=== PATIENT | male | born 1975 | race African-American/Black ===

== ENCOUNTER 2017-08-13 05:24 | Emergency (ER) | payer BC ==
[~2017-08-13] VITALS: Ht 203.2 cm; Wt 111.1 kg
--- NOTE | 2017-08-13 06:01 | Emergency Room Report ---
History of Present Illness Time Seen by 05Keegan Presenting Problem in Triage Pt arrived:Walked Presenting Problem:PT STATES THAT HE HAS TO "SPIDER BITES" ONE ON HIS RIGHT WRIST AND THE OTHER ON THE BACK OF HIS HEAD NEAR HIS NECK THAT WERE BOTH NOTICED 08/12/17999. THE ONE ON HIS WRIST IS SWOLLEN AND OOZING PUS. Onset of symptoms date/time:08/12/1711/16/1000 or onset unknown for: Treatment Prior to Arrival: PT PUT HYDOCORTISONE AND CLEANED WITH ALCOHOL. 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 N Clinical Suspician of Infection? N Mental Status: 1 - Regular (Normal Baseline) Sepsis Risk:Low Sepsis Risk Have you (or family members/close friends) recently traveled outside the [place]? Y If Yes, where/when: [place] IN THE PAST YEAR Have you had exposure to infectious disease within the past month? N TB? Other? Specify: Source patient, RN notes reviewed, old records Exam Limitations no limitations Comment infected area on rt wrist dorsum over the last few days with no known bite or wd and no iv drug use - pt is not diabetic and has no fever or chills Cardiac Chest Pain Chest pain indicative of cardiac No Timing/Duration this evening Severity moderate ALLERGIES Coded Allergies: No Known Allergies (08/13/17) History Medical History General CAD? No Angina: No [place]: No Hypertension? No Hyperlipidemia? No CHF? No DVT? No PE? No COPD? No Asthma? No Anemia? No GERD? No Gastric ulcers? No GI Bleed? No Hernia? No Thyroid Problems? No Hypothyroidism? No CVA? No Seizures? No Renal Insuffiency? No End Stage Renal Disease? No UTI? No Stones? No BPH? No GB Disease: No Nephritic Syndrome? No Asplenia? No Hepatitis? No Sickle Cell Disease? No Arthritis? No Migraines? No Cataracts? No Glaucoma? No MRSA? No HIV? No TB? No Anxiety? No Depression? No Cancer? No More? No Immunization Hx DT/Tetanus Unknown Surgical Hx Previous Surgery?N Social History Smoking Hx Smoker: Light Tobacco Smoker Tobacco: Yes Type Cigarettes Packs/day < 1 Pack Alcohol Alcohol: Yes Drugs none Review of Systems All Other Systems Reviewed and Negative Constitutional denies fever Eyes denies drainage ENT denies: ear discharge, epistaxis, throat pain. Respiratory denies cough, denies shortness of breath, denies wheezing Cardiovascular denies chest pain, denies palpitations, denies syncope Gastrointestinal denies abdominal pain, denies diarrhea, denies vomiting Genitourinary denies: dysuria, frequency, hesitancy, hematuria. Musculoskeletal denies back pain, denies joint pain, denies joint swelling, denies neck pain Skin see HPI, denies rash, other Psychiatric/Neurological denies headache, denies seizure Physical Exam Vital Signs Vital Signs Date Time Temp Pulse Resp B/P Pulse O2 O2 Flow FiO2 Ox Delivery Rate 08/13 0532 97.8 76 18 143/100 98 - WBC >12,000 or <4,000 or 10% bands? 2 or more SIRS Criteria Met? B/P:143/100 MAP:114 Creatinine >2.0? UA output<0.5ml/kg/hr for 2 hrs? Platelet count >100,000? Lactate >2.0mmol/1? INR >1.2 or PTT > than 60 sec? Evidence of Organ Dysfunction? Provider documented clinical suspician of infection? N Sepsis Criteria Count: 0 Sepsis Risk: Low Sepsis Risk General Appearance no apparent distress Eye Exam - bilateral eye PERRL, bilateral eye EOMI Ear, Nose, Throat normal ENT inspection Neck supple Respiratory Status No: respiratory distress. 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 No Results/Orders Current Medication Orders Sig/Aníbal Start time Last Medication Dose Route Stop Time Status Admin Miscellaneous 1 EACH CONSULT PHARMACY 08/13 615 AC Information * 08/13 180 Sodium Chloride 10 ML PRN PRN 08/13 615 AC IV 08/14 06 Vancomycin HCl 2,000 MG ONCE ONE 08/13 615 [facility] Sodium Chloride 250 ML IV 08/13 814 Orders Procedure Date/time Status CULTURE, WOUND 08/13 619 Active IV SALINE LOCK 08/13 602 Active CULTURE, BLOOD 08/13 602 Active SED RATE 08/13 602 Active COMPLETE METABOLIC PANEL 08/13 602 Active CBC WITH AUTO DIFF 08/13 602 Active Departure Departure Time of Disposition 15 Disposition DC Home or Self Care(routine) Clinical Impression Primary Impression: Cellulitis Qualifiers: Site of cellulitis: extremity Site of cellulitis of extremity: upper extremity Laterality: right Qualified Code: L03.113 - Cellulitis of right upper limb Condition STABLE Patient Instructions DI for Cellulitis -- Adult Additional Instructions keep clean and dressed and see pcp for follow up and culture results Discharge Counseling Counseled pt/family regarding diagnosis, test results, medications/RX, follow up needs Prescriptions Current Visit Scripts CEPHALEXIN (Keflex 500MG Capsule) 500 MG PO Q8H #30 CAP SULFAMETHOXAZOLE/TRIMETHOPRIM (Sulfamethoxazole-Tmp Ds Tablet) 1 TAB PO BID #20 TAB MUPIROCIN 2% (Bactroban Oint) 1 DAJUAN TP BID #1 TUBE ED Critical Care Critical Care No at 0620
[2017-08-13] MEDS ORDERED: KEFLEX 500MG.500 MG PO (06:18)
[2017-08-13] MEDS ORDERED: SEPTRA DS 800 M1 TAB PO (06:18)
[2017-08-13] MEDS ORDERED: BACTROBAN2% TP (06:18)
[2017-08-13 06:53] VITALS: BP 143/100
== END 2017-08-13 06:54 | disposition home or self-care (01) ==
LOC: ER 05:24
DX: L03.113 Cellulitis of right upper limb (principal); F17.210 Nicotine dependence, cigarettes, uncomplicated

== ENCOUNTER 2017-09-09 15:16 | Emergency (ER) | payer BC ==
[~2017-09-09] VITALS: Ht 203.2 cm; Wt 113.4 kg
[~2017-09-09 15:16] MED LIST: BACTROBAN2% TP; KEFLEX 500MG.500 MG PO; SEPTRA DS 800 M1 TAB PO
[2017-09-09 15:39] VITALS: BP 138/90
[2017-09-09] MEDS ORDERED: BACTROBAN2% TP (15:43)
[2017-09-09] MEDS ORDERED: BACTRIM DS 8001 TA1 PO (15:43)
[2017-09-09] MEDS ORDERED: KEFLEX 500MG.500 MG PO (15:43)
--- NOTE | 2017-09-09 15:43 | Urgent Treatment Center Report ---
History of Present Issue Date/Time Seen by Provider 09/09/17 5911 Visit Reason Pt arrived:Walked Presenting Problem:PT SEEN IN ED 2 WEEKS AGO AND DX WITH CELLULITIS ON HIS RT THIGH. PT DID NOT FINISH ALL HIS ANTIBIOTICS AND THE CELLULITIS HAS GOTTEN WORSE. Location if Accident: Onset of symptoms date/time:/ or onset unknown for:MEDICAL HX UNKNOWN Have you (or family members/close friends) recently traveled outside the [place]? N If Yes, where/when: Have you had exposure to infectious disease within the past month? TB? Other? Specify: Patient states that he was seen and treated about 2 weeks ago for cellulitis on his arm. States that he took the medication but when he noticed that it was looking better he stopped taking the medication. States that now he noticed that he had a spot on his right upper leg that has continued to get worse and he thought he better come in because it looks like the cellulitis he had a couple weeks ago just in a different place ALLERGIES Coded Allergies: No Known Allergies (08/13/17) Home Medications Active Scripts CEPHALEXIN (Keflex 500MG Capsule) 500 MG PO Q8H #30 CAP Prov: 08/13/17 SULFAMETHOXAZOLE/TRIMETHOPRIM (Sulfamethoxazole-Tmp Ds Tablet) 1 TAB PO BID #20 TAB Prov: 08/13/17 MUPIROCIN 2% (Bactroban Oint) 1 DAJUAN TP BID #1 TUBE Prov: 08/13/17 History Medical History General CAD? No Angina: No [place]: No Hypertension? No Hyperlipidemia? No CHF? No DVT? No PE? No COPD? No Asthma? No Anemia? No GERD? No Gastric ulcers? No GI Bleed? No Hernia? No Thyroid Problems? No Hypothyroidism? No CVA? No Seizures? No Renal Insuffiency? No UTI? No Stones? No BPH? No GB Disease: No Nephritic Syndrome? No Asplenia? No Hepatitis? No Sickle Cell Disease? No Arthritis? No Migraines? No Cataracts? No Glaucoma? No MRSA? No HIV? No TB? No Anxiety? No Depression? No Cancer? No More? No Immunization HX DT/Tetanus Unknown Surgical Hx Previous Surgery?N Social History Smoking Hx Smoker: Current Some Day Smoker Tobacco: Yes Type Cigarettes Packs/day < 1 Pack Alcohol Alcohol: Yes Review of Systems All Other Systems Reviewed and Negative Skin other Comment red slightly raised area with scabbing noted where he had squeezed it to release the puss inside Physical Exam Vital Signs Vital Signs Date Time Temp Pulse Resp B/P Pulse O2 O2 Flow FiO2 Ox Delivery Rate 09/09 1528 97.8 71 18 138/90 100 General Appearance normal appearance, WD/WN, no apparent distress Respiratory Status Yes: trachea midline, chest symmetrical, non tender chest. No: respiratory distress. Cardiovascular normal exam, regular rate/rhythm Neurologic alert, normal exam, oriented x 3 Skin redness on right upper leg like that associated with cellulitis, warmth to the area with no drainage no abcess Medical Decision Making LABS/Meds/Orders Pt receiving controlled substance in ED? No Departure Departure Time of Disposition 1539 Disposition DC Home or Self Care(routine) Clinical Impression Primary Impression: Cellulitis Qualifiers: Site of cellulitis: extremity Site of cellulitis of extremity: lower extremity Laterality: right Qualified Code: L03.115 - Cellulitis of right lower limb Condition STABLE Patient Instructions Cellulitis, DI for Cellulitis -- Adult Additional Instructions Keep area clean and dry Take medication as prescribed and take all of the medication even after the area disappears Return if needed Discharge Counseling Counseled pt/family regarding diagnosis, medications/RX, home care, follow up needs Prescriptions Current Visit Scripts SULFAMETHOXAZOLE W/TRIMETHOPRI (Bactrim Ds Tab) 1 TABLET PO BID #20 TAB CEPHALEXIN (Keflex 500MG Capsule) 500 MG PO Q8H #30 CAP MUPIROCIN 2% (Bactroban Oint) 1 DAJUAN TP BID #1 TUBE at 9544
--- OUTSIDE RECORDS SUMMARY | 2017-09-13 06:22 | External Medical Summary Rpt ---
Author Author SHANTEL Carson, [employer] Address Unknown Phone Unavailable
--- OUTSIDE RECORDS SUMMARY | 2017-09-13 06:22 | External Medical Summary Rpt | CCD ---
Author Author , SAHNTEL FUNES Address Unknown Phone [email or web address] Purpose Continuity of Care Document - through 2016 Problems Code Diagnosis DOS Provider Status L03.90 CELLULITIS, UNSPECIFIED
--- OUTSIDE RECORDS SUMMARY | 2017-09-13 06:22 | External Medical Summary Rpt | CCD ---
Author Author , SHANTEL FUNES Address Unknown Phone [email or web address] Purpose Continuity of Care Document - through 2016 Problems Code Diagnosis DOS Provider Status L03.90 CELLULITIS, UNSPECIFIED
--- OUTSIDE RECORDS SUMMARY | 2017-09-13 06:22 | External Medical Summary Rpt | CCD ---
Demographics Preferred Language Nepalese Marital Status Unknown Evangelical Affiliation Unknown Race Unknown Ethnic Group Unknown Author Author , SHANTEL FUNES Address Unknown Phone [email or web address] Immunization Name Date Rout CVX Reac Dose Comm Prov Is Faci e tion ent ider Refu lity Give sed n Hep 10-2 43 999 Hist H149 No H149 B, 1-20 oric adul 03 al t Info rmat ion - Sour ce Unsp ecif ied Hep 05-1 43 999 Hist H149 No H149 B, 9-20 oric adul 03 al t Info rmat ion - Sour ce Unsp ecif ied Hep 04- 43 999 Hist H149 No H149 B, 5-20 oric adul 03 al t Info rmat ion - Sour ce Unsp ecif ied
--- OUTSIDE RECORDS SUMMARY | 2017-09-13 06:22 | External Medical Summary Rpt | CCD ---
Demographics Preferred Language Citizen Of [place] Marital Status Unknown Synagogue Affiliation Unknown Race Unknown Ethnic Group Unknown Author Author , SHANTEL FUNES Address Unknown Phone [email or web address] Immunization Name Date Rout CVX Reac Dose [...]
== END 2017-09-09 15:45 | disposition home or self-care (01) ==
LOC: UTC 15:16
DX: L03.115 Cellulitis of right lower limb (principal); F17.210 Nicotine dependence, cigarettes, uncomplicated